=== PATIENT | female | born 1995 | race Caucasian/White ===

== ENCOUNTER 2023-06-27 10:38 | Emergency (ER) | payer MEDICAID ==
[~2023-06-27] VITALS: Ht 165.1 cm; Wt 77.3 kg
[2023-06-27 10:41] VITALS: TEMP 98.1
[2023-06-27] MEDS: LIDOCAINE 1% 10 ML VIAL ID ONE (12:28)
[2023-06-27] MEDS: PERTUSS(ACELL),DIPH,TET/PF 0.5 ML SYRINGE [ADULT] IM. ONE (12:35)
[2023-06-27 12:49] VITALS: BP 109/69; PULSE 76; RESP 17
[2023-06-27] MEDS: BACITRACIN 0.9 GM PACKET OINTMENT TP ONE (12:54)
== END 2023-06-27 12:56 | disposition home or self-care (01) ==
LOC: EMS 10:39
DX: S81.811A Laceration without foreign body, right lower leg, initial encounter (principal); W19.XXXA Unspecified fall, initial encounter; Y93.89 Activity, other specified; Y92.89 Other specified places as the place of occurrence of the external cause; Y99.8 Other external cause status
CPT/HCPCS: 99283; 90715; 90471; 12001; J3490